=== PATIENT | female | born 1955 | race Caucasian/White ===

== ENCOUNTER 2020-01-10 13:19 | Outpatient (CLI) | payer OTHER, SELFPAY ==
--- NOTE | ~2020-01-10 | XR_ITS ---
XR finger 4th LT min 2V 01/10/2020 13:40 Indication: Left fourth finger pain Procedure: 4 views of the left fourth finger Comparison: No prior studies for comparison. Findings: No fracture or traumatic malalignment. No significant soft tissue abnormality. No radiopaqu e foreign bodies. Impression: 1: No acute bone or joint abnormality. Reviewed, dictated and finalized at location A. Impression: 1: No acute bone or joint abnormality.
== END 2020-01-10 13:20 | disposition home or self-care (01) ==
LOC: ANHIMG 13:28
PROVIDERS: PCP Internal Medicine; Visit Provider Internal Medicine
DX: S69.90XA Unspecified injury of unspecified wrist, hand and finger(s), initial encounter (principal)
CPT/HCPCS: 73140

== ENCOUNTER 2021-03-26 08:57 | Outpatient (CLI) | payer OTHER, SELFPAY ==
--- NOTE | ~2021-03-26 | MM_ITS ---
EXAMINATION: MM screening [facility] w robbin HISTORY: Screening TECHNIQUE: Craniocaudal and mediolateral oblique 3-D tomosynthesis images were obtained and synthetic 2-D images were generated. CAD analysis was submitted and interpreted. COMPARISON: Comparison to multiple prior studies sequentially, with oldest reviewed study dated 09/2017. BREAST PARENCHYMAL COMPOSITION: There are scattered areas of fibroglandular density. FINDINGS: Innumerable punctate monomorphic breast calcifications are not significantly changed from p rior studies. There is no evidence of suspicious mass, calcification, or architectural distortion to suggest malignancy in either breast. There has been no suspicious interval change. IMPRESSION: 1. No mammographic evidence of malignancy. 2. Recommend routine screening mammography in one year. BI-RADS Category 2: Benign finding(s). Reviewed, dictated and finalized at location A.
== END 2021-03-26 08:58 | disposition home or self-care (01) ==
LOC: ANHIMG 08:59
PROVIDERS: PCP Internal Medicine; Visit Provider Internal Medicine
DX: Z12.31 Encounter for screening mammogram for malignant neoplasm of breast (principal)
CPT/HCPCS: 77063; 77067

== ENCOUNTER 2022-04-21 08:06 | Outpatient (CLI) | payer OTHER, SELFPAY ==
--- NOTE | ~2022-04-21 | MM_ITS ---
EXAMINATION: MM screening [facility] w robbin HISTORY: Screening mammogram TECHNIQUE: Craniocaudal and mediolateral oblique 3-D tomosynthesis images were obtained and synthetic 2-D images were generated. Bilateral rotated lateral CC views. CAD analysis was submitted and interp reted. COMPARISON: 03/26/2021, 07/20/2019 bilateral screening mammogram examinations BREAST PARENCHYMAL COMPOSITION: There are scattered areas of fibroglandular density. FINDINGS: Scattered bilateral punctate benign microcalcifications and some arterial calcification are again noted. Architectural distortion is suggested in the outer posterior left breast on craniocaudal view. Diagno stic left mammogram and left breast ultrasound examination are recommended. Otherwise there is no evidence of suspicious mass, calcification, or architectural distortion to sugg est malignancy in either breast. There has been no other suspicious interval change. IMPRESSION: 1. Possible architectural distortion/asymmetry in the posterior outer left breast on CC view 2. Diagnostic left mammogram and left breast ultrasound examination are recommended BI-RADS Category 0: Incomplete: Needs additional imaging evaluation. Reviewed, dictated and finalized at location A. IMPRESSION: 1. Possible architectural distortion/asymmetry in the posterior outer left ab st on CC view 2. Diagnostic left mammogram and left breast ultrasound examination are recomme nded BI-RADS Category 0: Incomplete: Needs additional imaging evaluation.
== END 2022-04-21 08:07 | disposition home or self-care (01) ==
PROVIDERS: PCP Internal Medicine; Visit Provider Internal Medicine
DX: Z12.31 Encounter for screening mammogram for malignant neoplasm of breast (principal); R92.8 Other abnormal and inconclusive findings on diagnostic imaging of breast
CPT/HCPCS: 77063; 77067

== ENCOUNTER 2022-05-26 12:51 | Outpatient (CLI) | payer OTHER, SELFPAY ==
--- NOTE | ~2022-05-26 | MMUS_ITS ---
EXAMINATION: MM diagnostic [facility] LT w robbin, US breast LT limited HISTORY: Follow-up left breast asymmetry TECHNIQUE: Additional 3-D tomosynthesis images of the left breast were performed and synthetic 2-D im ages were generated. CAD analysis was submitted and interpreted. High resolution Limited left breast ultrasound was performed. COMPARISON: 02/12/2018 BREAST PARENCHYMAL COMPOSITION: The breasts are heterogeneously dense, which may obscure small masses FINDINGS: MAMMOGRAPHIC FINDINGS: No discrete mass, architectural distortion or suspicious cluster of calcifications are identified. Th ere are scattered benign-appearing left breast calcifications. ULTRASOUND: Limited left breast ultrasound: At 5:00 near the nipple there is an oval hypoechoic mass with echogen ic center measuring 6 x 5 x 5 mm. No internal vascularity or posterior features. Parallel orientation . IMPRESSION: 1. Probable benign left breast mass at 5:00 near the nipple, most likely an intramammary lymph node. 2. Recommend 6 month follow-up diagnostic left mammogram and ultrasound BI-RADS category 3, probably benign findings. Reviewed, dictated and finalized at location A. IMPRESSION: 1. Probable benign left breast mass at 5:00 near the nipple, most likely an int ramammary lymph node. 2. Recommend 6 month follow-up diagnostic left mammogram and ultrasound BI-RADS category 3, probably benign findings.
== END 2022-05-26 12:52 | disposition home or self-care (01) ==
LOC: ANHIMG 12:52
PROVIDERS: PCP Internal Medicine; Visit Provider Internal Medicine
DX: R92.8 Other abnormal and inconclusive findings on diagnostic imaging of breast (principal)
CPT/HCPCS: 76642; 77061; 77065; G0279

== ENCOUNTER 2022-11-24 11:57 | Outpatient (CLI) | payer BC, SELFPAY ==
--- NOTE | ~2022-11-24 | MMUS_ITS ---
EXAMINATION: MM diagnostic [facility] w robbin, US breast LT complete HISTORY: Six-month follow-up of probable benign left mid-lower breast mass near nipple TECHNIQUE: Additional 3-D tomosynthesis images of were performed and synthetic 2-D images were genera josue. CAD analysis was submitted and interpreted. High resolution breast ultrasound was performed. COMPARISON: 05/26/2022 diagnostic left mammogram and limited left breast ultrasound 04/21/2022, 03/26/2021, 07/30/2019 screening mammogram examinations BREAST PARENCHYMAL COMPOSITION: There are scattered areas of fibroglandular density. FINDINGS: MAMMOGRAPHIC FINDINGS: Numerous scattered benign-appearing microcalcifications are noted present on prior mammograms back to 07/20/2019 No new mass, architectural distortion, microcalcifications, skin thickening or retraction is evident. . ULTRASOUND FINDINGS: In the mid to lower left breast near nipple there is a stable circumscribed oval hypoechoic lesion wi th probable fatty hilum, likely a benign intramammary lymph node, measuring approximately 4 x 6.3 mm, IMPRESSION: 1. Benign findings 2. Routine annual mammographic screening is recommended BI-RADS Category 2: Benign finding(s). Reviewed, dictated and finalized at location A. IMPRESSION: 1. Benign findings 2. Routine annual mammographic screening is recommended BI-RADS Category 2: Benign finding(s).
== END 2022-11-24 11:58 | disposition home or self-care (01) ==
PROVIDERS: PCP Internal Medicine; Visit Provider Internal Medicine
DX: R92.8 Other abnormal and inconclusive findings on diagnostic imaging of breast (principal)
CPT/HCPCS: 76641; 77061; 77065; G0279

== ENCOUNTER 2024-05-16 09:12 | Outpatient (CLI) | payer BC, SELFPAY ==
--- NOTE | ~2024-05-16 | MM_ITS ---
EXAMINATION: MM screening [facility] w robbin HISTORY: Screening TECHNIQUE: Craniocaudal and mediolateral oblique 3-D tomosynthesis images were obtained and synthetic 2-D images were generated. CAD analysis was submitted and interpreted. COMPARISON: Comparison to multiple prior studies sequentially, with oldest reviewed study dated 03/12. BREAST PARENCHYMAL COMPOSITION: Not dense: There are scattered areas of fibroglandular density. FINDINGS: Scattered bilateral breast calcifications and bilateral breast asymmetries are stable. Ther e is no evidence of suspicious mass, calcification, or architectural distortion to suggest malignancy in either breast. There has been no suspicious interval change. IMPRESSION: 1. No mammographic evidence of malignancy. 2. Recommend routine screening mammography in one year. BI-RADS Category 2: Benign finding(s). Reviewed, dictated and finalized at location B.
== END 2024-05-16 09:13 | disposition home or self-care (01) ==
LOC: ANHIMG 09:18
PROVIDERS: PCP Internal Medicine; Visit Provider Internal Medicine
DX: Z12.31 Encounter for screening mammogram for malignant neoplasm of breast (principal)
CPT/HCPCS: 77063; 77067

== ENCOUNTER 2024-07-04 15:08 | Outpatient (CLI) | payer BC, SELFPAY ==
--- NOTE | ~2024-07-04 | DEXA_ITS ---
Bone Density Report Name: DOMENIC NEVES Age: 69 Sex: Female Ethnicity: White Date of : 1955 Indication: postmenopausal; screening for osteoporosis; height loss; Referring Provider: ESTELLE DEL ANGEL Study: Bone densitometry was performed. Exam Date: July 04, 2024 Accession number: [id number] Bone Density: Region BMD T-score Z-score Classification AP Spine(L1-L4) 0.984 -0.6 1.5 Normal Femoral Neck (Left) 0.853 0.0 1.8 Normal Total Hip (Left) 1.052 0.9 2.4 Normal Femoral Neck (Right) 0.854 0.0 1.8 Normal Total Hip (Right) 1.058 1.0 2.4 Normal Total Hip Mean 1.055 1.0 2.4 Normal World Health Organization criteria for BMD impression classify patients as: Normal (T-score at or above -1.0), Osteopenia (T-score between -1.0 and -2.5), or Osteoporosis (T-score at or below -2.5). 10-year Fracture Risk: FRAX not reported because: All T-scores for Spine Total, Hip Total, Femoral Neck at or above -1.0 Previous Exams: Region Exam Age BMD T-score BMD Change BMD Change Date g/cm2 vs Baseline vs Previous AP Spine (L1-L4) 07/04/2024 69 0.984 -0.6 0.047 (5.0%)* 0.028 (2.9%)* 02/12/2018 62 0.956 -0.8 0.020 (2.1%) 0.020 (2.1%) 07/31/2015 60 0.937 -1.0 Total Hip(Left) 07/04/2024 69 1.052 0.9 0.092 (9.5%)* 0.104 (10.9%)* 02/12/2018 62 0.948 0.0 -0.012 (-1.3%) -0.012 (-1.3%) 07/31/2015 60 0.960 0.1 Total Hip(Right) 07/04/2024 69 1.058 1.0 0.073 (7.4%)* 0.060 (6.0%)* 02/12/2018 62 0.999 0.5 0.013 (1.4%) 0.013 (1.4%) 07/31/2015 60 0.985 0.4 *Denotes significance at 95% confidence level, LSC for AP Spine = 0.022 g/cm2, LSC for Total Hip = 0.027 g/cm2 Clinical Information Provided by Patient: Has used the following medications: Vitamin D, Calcium Patient maximum height was 65.5 Menopause Age: 50 No regular weight bearing exercise Drinks caffeinated beverages Onset of menses at age 15 Number of children 2 Impression: The patient has normal bone mass. No significant bone loss was observed. Discussion: BONE DENSITY IS ABOVE THE MINIMUM DESIRABLE LEVEL AT ALL SKELETAL SITES TESTED. This patient?s bone mineral density is above the minimum desirable level (T-score -1.0 or better) at all sites measured. The patient should follow a healthful lifestyle (good nutrition with adequate calcium and vitamin D, and appropriate weight-bearing exercise). Follow-Up: Consider repeating this study in 5 years or sooner if there is some new clinical indication. Reported by: LAUREN on 07/04/2024 3:48:00 PM. Reviewed, dictated and finalized at location [facility]
== END 2024-07-04 15:09 | disposition home or self-care (01) ==
PROVIDERS: PCP Internal Medicine; Visit Provider Internal Medicine
DX: Z78.0 Asymptomatic menopausal state (principal); Z13.820 Encounter for screening for osteoporosis
CPT/HCPCS: 77080

== ENCOUNTER 2025-06-26 09:14 | Outpatient (CLI) | payer BC, SELFPAY ==
--- NOTE | ~2025-06-26 | XR_ITS ---
EXAMINATION: XR knee LT min 4V, 06/26/2025 9:29 INDUCTION BRAZER HISTORY: Pain in left knee x 4 weeks, no inj, no surg COMPARISON: No comparisons available. Findings: No acute fracture or malalignment. No significant degenerative changes. Soft tissues unremarkable. Impression: No acute fracture or malalignment. Reviewed, dictated and finalized at location P. CTION BRAZER Impression: No acute fracture or malalignment.
== END 2025-06-26 09:15 | disposition home or self-care (01) ==
LOC: GOSHIMG 09:15
PROVIDERS: PCP Nurse Practitioner Family; Visit Provider Nurse Practitioner Family
DX: M25.562 Pain in left knee (principal)
CPT/HCPCS: 73564

== ENCOUNTER 2025-07-03 07:30 | Outpatient (CLI) | payer BC, SELFPAY ==
--- NOTE | ~2025-07-03 | MM_ITS ---
EXAMINATION: screening [facility] BI w robbin INDICATION: Asymptomatic, referred for screening mammogram COMPARISON: 05/16/2024 through 07/20/2019 TECHNIQUE: Digital Breast Tomosynthesis CC, MLO views of Both breasts were obtained with computer-aided detection to assist in interpretation of the study. FINDINGS: There are scattered areas of fibroglandular density. There is a group of microcalcifications associated with focal asymmetry in the inner central left breast at posterior third. There is a group of calcification associated of focal asymmetry in the inferior lateral in anterior third of the left breast. Additional group of calcification is seen in the superior lateral in the middle third of the left breast. Elsewhere, there are no mammographic features of malignancy. IMPRESSION: 1. Left breast Incompletely characterized multiple groups of calcifications. 2. No evidence of malignancy in the Right breast. RECOMMENDATION: Left breast Diagnostic mammogram with true lateral, and appropriate magnification views. BI-RADS Category 0: Incomplete: Needs additional imaging evaluation. Reviewed, dictated and finalized at location B. NG SUPERVISOR IMPRESSION: 1. Left breast Incompletely characterized multiple groups of calcifications. 2. No evidence of malignancy in the Right breast. RECOMMENDATION: Left breast Diagnostic mammogram with true lateral, and appropriate magnificati on views. BI-RADS Category 0: Incomplete: Needs additional imaging evaluation.
== END 2025-07-03 07:31 | disposition home or self-care (01) ==
LOC: ANHFOHIMG 07:40
PROVIDERS: PCP Family Medicine; Visit Provider Family Medicine
DX: Z12.31 Encounter for screening mammogram for malignant neoplasm of breast (principal); R92.8 Other abnormal and inconclusive findings on diagnostic imaging of breast
CPT/HCPCS: 77063; 77067